=== PATIENT | male | born 1990 | race Two or more races ===

== ENCOUNTER → 2025-05-13 | Outpatient (CLI) | payer MEDICAID, SELFPAY ==
--- NOTE | 2025-05-13 | XR_ITS ---
Examination: Knee, left , 3 views Technique: Knee AP, lateral, oblique 3 views Date and time of exam: May 13, 2025 1117 hours INDICATIONS: Left knee pain and swelling beginning today. FINDINGS: Adequate bone density. No fracture or dislocation. Small knee effusion IMPRESSION: Small knee effusion No significant arthritic change
== END | disposition home or self-care (01) ==
PROVIDERS: Referring Provider Student in an Organized Health Care Education/Training Program; Visit Provider Student in an Organized Health Care Education/Training Program
DX: M25.462 Effusion, left knee (principal)
CPT/HCPCS: 73562

== ENCOUNTER 2025-05-22 16:44 | Emergency (ER) | payer MEDICAID, SELFPAY ==
--- NOTE | 2025-05-22 | XR_ITS ---
Exam: MRI knee without contrast, left Date and time of exam: May 22, 2025, 1731 hrs. Indications: Swelling involving the knee 10 days. Technique: Multiple axial, coronal, and sagittal sections on the knee have been obtained. T2-Weighted sagittal, fat-suppressed images, TR 3,500, TE 62, T2 weighted coronal fat-saturated images, TR 3,500, TE 62 Proton density sagittal sections, TR 1800, TE 31. T-1 weighted coronal images, TR 524, TE 13.0 Findings: Medial meniscus anterior horn intact. Medial meniscus, body intact. Posterior horn medial meniscus intact. Lateral meniscus anterior horn is intact Lateral meniscus, body is intact Posterior horn lateral meniscus is intact Anterior cruciate ligament high-grade sprain Posterior cruciate ligament appears intact. Knee effusion is small. Quadriceps and patellar tendons appear intact. There is no evidence of tendinosis. Inflammatory change or fracture of Hoffa's fat pad is not seen. Medial patellar facet demonstrates no thinning. Lateral patellar facet cartilage demonstrates no thinning. Trochlear cartilage demonstrates no thinning. Marrow signal adequate Hematoma versus abscess anterior to the patellar tendon, 2.5 x 1.8 x 2.5 cm with extensive surrounding edema. Medial collateral ligament appears intact. No meniscocapsular separation is seen. Illiotibial band and fibular collateral ligament are intact. Biceps femoris tendons appear intact. Medial femoral condylar articular cartilage demonstrates no thinning. Lateral femoral condylar articular cartilage demonstratesno thinning. Tibial plateau cartilage demonstrates no thinning. Impression: Moderate to high-grade sprain anterior cruciate ligament Abscess versus hematoma anterior to the patellar tendon, 2.5 x 1.8 x 2.5 cm, clinical correlation advised Diffuse edema in the subcutaneous tissue fat surrounding the knee
[2025-05-22 17:04] VITALS: BP 144/80; PULSE 88; RESP 18; TEMP 36.9; O2SAT 99
--- NOTE | 2025-05-22 17:16 | PD.EDRME ---
Rapid Medical Screening Exam RME Arrival date/time: 05/22/25 16:44 35-year-old male with no known medical history presents to the emergency room with a chief complaint of swelling and tenderness to the left knee x 1 week I have greeted and performed a focused initial assessment of this patient. A comprehensive ED assessment and evaluation of the patient, analysis of all test results, and completion of the medical decision making process will be conducted by additional ED providers. Chief Complaint: Extremity Injury, Lower Vital signs: Vital Signs Temperature 98.5 F 05/22/25 17:04 Pulse Rate 88 05/22/25 17:04 Respiratory Rate 18 05/22/25 17:04 Blood Pressure 144/80 H 05/22/25 17:04 Pulse Oximetry (%) 99 05/22/25 17:04 Oxygen Delivery Method Room Air 05/22/25 17:04 Vital signs reviewed by provider: Yes
--- NOTE | 2025-05-22 18:56 | EDNOTE_ITS ---
Lower Extremity Injury RME/HPI General Chief Complaint: Extremity Injury, Lower Stated Complaint: LEFT KNEE INJURY Time Seen by Provider: 05/22/25 17:58 Arrival date/time: 05/22/25 16:44 RME / HPI RME / HPI Narrative: 35-year-old male with no known medical history presents to the emergency room with a chief complaint of swelling and tenderness to the left anterior knee x 1 week, associated with redness, severity mild. Denies any fever denies any tenderness on range of motion of the knee denies any trauma to the knee Related Data Previous Rx's ?Medication ?Instructions ?Recorded clindamycin HCl 300 mg capsule 300 mg PO Q6H #30 caps 05/22/25 (Cleocin HCl) ibuprofen 800 mg tablet 800 mg PO TID PRN pain #30 t abs 05/22/25 Allergies Allergy/AdvReac Type Severity Reaction Status Date / Time No Known Allergies Allergy Verified 05/22/25 16:47 Review of Systems Review of Systems Narrative Review of Systems: Review of system reviewed and within normal limits except mentioned in HPI ED Exam Narrative Physical exam: VITAL SIGNS: Reviewed. GENERAL APPEARANCE: Alert and interactive, follows commands, no acute distress, HEAD AND FACE: Non-traumatic. ENT: PERRL, pink conjunctivitis, eyelid no trauma, Mucous membrane moist. NECK: Supple, nontender, no nuchal rigidity. CHEST: No tenderness, no crepitus, no paradoxical movement, no retractions. LUNGS: Clear, well ventilated, symmetric, no rales, no wheezing, no ronchi, no stridor, good breath sounds bilaterally. HEART: Regular rate, regular rhythm, no murmur, no gallops. ABDOMEN: Soft, positive bowel sounds, nondistended, no guarding, nontender, no rebound, no masses, RECTAL: Deferred. GENITAL: Deferred. NEUROLOGICAL: Gross motor function intact sensory function intact, Appropriate for age. MUSCULOSKELETAL: low back nontender, full range of motion. EXTREMITIES: + Swelling redness left anterior knee prepatellar area fluctuant, full range of motion. SKIN: Color pink, dry, no rash, no lacerations, no abrasions, no contusions. LYMPHATICS: Deferred. Course Quality Measures none Orders Category Date Time Status MRI Screening NOW Care 05/22/25 17:09 Active MR knee LT wo con Stat Exams 05/22/25 Completed Clindamycin Vial [Cleocin vial] Med 05/22/25 18:54 Discontinued 600 mg IM X1 ONE Ibuprofen Tab [Motrin Tab] Med 05/22/25 18:54 Discontinued 800 mg PO X1 ONE Lidocaine 1% 20 ml [Xylocaine 1% 20 ML] Med 05/22/25 18:54 Discontinued 20 ml INFL X1 ONE Vital Signs Vital signs: Vital Signs Temperature 98.5 F 05/22/25 17:04 Pulse Rate 88 05/22/25 17:04 Respiratory Rate 18 05/22/25 17:04 Blood Pressure 144/80 H 05/22/25 17:04 Pulse Oximetry (%) 99 05/22/25 17:04 Oxygen Delivery Method Room Air 05/22/25 17:04 PROCEDURES: Abscess I/D Site: other (Left anterior knee) Sedation/analgesia: none Local Anesthetic: lidocaine 1% Amount of anesthesia used (mL): 5 Technique: incised with #11 blade Amount of fluid expressed (mL): 2 Irrigation: Yes Packing used?: plain Extremity Injury, Lower MDM Narrative MDM Narrative:: 35-year-old male with no known medical history presents to the emergency room with a chief complaint of swelling and tenderness to the left anterior knee x 1 week, associated with redness, severity mild. Denies any fever denies any tenderness on range of motion of the knee denies any trauma to the knee. MRI of the knee showed Moderate to high-grade sprain anterior cruciate ligament Abscess versus hematoma anterior to the patellar tendon, 2.5 x 1.8 x 2.5 cm, clinical correlation advised Diffuse edema in the subcutaneous tissue fat surrounding the knee Incision and drainage was done by me see procedure notes patient tolerated the procedure well. Patient received clindamycin IM. Clinically patient is not having any septic knee, patient is ambulatory not limping. Able to bend and extend the knee without any limitation patient is not septic Patient data External records reviewed:: None Clinical information provided by:: patient Social determinants that could affect healthcare access:: none Patient has the following chronic illnesses:: None How is presenting disease/condition affected by chronic disease/condition?: no chronic disease Evaluation data The following diagnostics were reviewed and interpreted by me:: radiology exam(s) Lab and/or radiology exams considered but not ordered:: None Interpretation Summary: See results MDM Medications / Prescriptions Medications or Prescriptions considered but not ordered:: None Medication administrations:: Medication Administration History Discontinued Medications Clindamycin Phosphate (Clindamycin Phos Inj 150 Mg/Ml Vial 6 Ml) 600 mg IM X1 ONE Stop: 05/22/25 18:55 Last Admin: 05/22/25 19:19 Dose: 600 mg Documented By: OA Ibuprofen (Ibuprofen Tab 400 Mg Tablet) 800 mg PO X1 ONE Stop: 05/22/25 18:55 Last Admin: 05/22/25 19:19 Dose: 800 mg Documented By: OA Lidocaine HCl (Lidocaine Hcl 1% 20 Ml Vial) 20 ml INFL X1 ONE Stop: 05/22/25 18:55 Last Admin: 05/22/25 19:19 Dose: 20 ml Documented By: OA Clindamycin, Motrin Consultations Consultation(s) initiated? (list below): No Diagnosis Extremity Injury, Lower Differential Diagnosis: other (Prepatellar swelling, prepatellar abscess, anterior cruciate sprain) Most likely diagnosis given after review of the tests above:: Prepatellar abscess, anterior sheath sprain Admission Indicated Admission indicated?: not indicated Admission Request Was there a request for admission?: No Disposition Plan Disposition Plan: Discharge Discharge Attestation Discharge Attestation: The patient was given an opportunity to ask questions and understood the discharge instructions. Discharge instructions specifically effects, indications for sooner follow up or return to the emergency department, and the expected course of current diagnosis. Patient condition: Stable Discharge Plan Plan Patient Disposition: HOME (Self Care) Discharge Disposition comment: stable Prescriptions/Referrals Prescriptions/Med Rec: New clindamycin HCl [Cleocin HCl] 300 mg capsule 300 mg PO Q6H Qty: 30 0RF ibuprofen 800 mg tablet 800 mg PO TID PRN (Reason: pain) Qty: 30 0RF Referrals: Amisha Fuller [employer] INSTRUCTOR [Primary Care Provider] - In 1 week Problem List Clinical Impression: Prepatellar abscess, Anterior cruciate ligament sprain Patient/Caregiver Discharge Instructions Discharge Activity: activity as tolerated Education Materials: ED Abscess, Incision And Drainage Additional Instructions: Thank you for the opportunity for serving you today. You are stable for discharged . You are advised to: Follow-up with your PCP in 1 to 2 days as your PCP to refer you to knee joint specialist orthopedic surgeon Return to ED for worsening of symptoms Increase oral fluids Take medication as prescribed Change the top dressing daily. Pull out the packing by 1 cm every day and totally remove it in 5 days Print Language: French Stand Alone Forms: Audrey Award Info., Patient Portal Info Letter PA/ENROBING MACHINE FEEDER Supervising Physician PA/ENROBING MACHINE FEEDER Supervising Physician: MD Dona
[2025-05-22] MEDS: LIDOCAINE HCL 1% 20 ML VIAL INFL (19:19)
[2025-05-22] MEDS: IBUPROFEN TAB 400 MG TABLET 800 MG PO (19:19)
[2025-05-22] MEDS: CLINDAMYCIN PHOS INJ 150 MG/ML VIAL 6 ML 600 MG IM (19:19)
[2025-05-22 19:55] VITALS: BP 134/87; PULSE 66; RESP 18; TEMP 36.8; O2SAT 97
== END 2025-05-22 20:20 | disposition home or self-care (01) ==
PROVIDERS: Emergency Provider Family Medicine; PCP Nurse Practitioner Family
DX: S83.512A Sprain of anterior cruciate ligament of left knee, initial encounter (principal); X58.XXXA Exposure to other specified factors, initial encounter; Y93.9 Activity, unspecified; Y92.9 Unspecified place or not applicable; Y99.9 Unspecified external cause status; L02.91 Cutaneous abscess, unspecified
CPT/HCPCS: 10060; 73721; 96372; 99284; J0736; J3490; A9270